=== PATIENT | male | born 1995 | race Caucasian/White ===

== ENCOUNTER 2020-08-20 01:52 | Emergency (ER) | payer SELFPAY ==
[~2020-08-20] VITALS: Ht 157.5 cm; Wt 68.2 kg
[2020-08-20] MEDS ORDERED: morphine INJ 10 MG/ML 1ML (SYR OR VIAL) IVP STA (02:07)
[2020-08-20] MEDS ORDERED: morphine INJ 10 MG/ML 1ML (SYR OR VIAL) IM STA (02:17)
[2020-08-20] MEDS ORDERED: RX-HYDROCODONE/APAP 5/325 MG #4 TAB PK PO PRN (03:00)
[2020-08-20] MEDS ORDERED: oxyCODONE/APAP 5/325MG (PERCOCET 5) TABLET PO ONE (03:00)
[2020-08-20] MEDS ORDERED: ACHD5005 PO (03:02)
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
[2020-08-20 03:14] VITALS: BP 132/89
--- NOTE | 2020-08-20 06:01 | Diagnostic Imaging Report ---
INDICATION: Right leg pain AP and lateral views of the right tibia-fibula show no fracture or dislocation. IMPRESSION: Negative right tibia and fibula Dictated by: Dictated on workstation # [id number]
== END 2020-08-20 03:15 | disposition home or self-care (01) ==
LOC: EDUNIT# 01:52 → ER 01:55
DX: S80.11XA Contusion of right lower leg, initial encounter (principal); F17.210 Nicotine dependence, cigarettes, uncomplicated; W22.8XXA Striking against or struck by other objects, initial encounter; Y92.838 Other recreation area as the place of occurrence of the external cause; Y93.44 Activity, trampolining
CPT/HCPCS: 73590; 99284

== ENCOUNTER 2021-01-21 16:28 | Emergency (ER) | payer SELFPAY ==
[~2021-01-21] VITALS: Ht 157.4 cm; Wt 60.0 kg
[~2021-01-21 16:28] MED LIST: ACHD5005 PO
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
[2021-01-21] MEDS ORDERED: HYDROcodone/APAP 5 MG/325 MG (LORTAB) TAB PO ONE (18:00)
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
[2021-01-21] MEDS ORDERED: KETOROLAC 30 MG/ML VIAL IM ONE (18:15)
[2021-01-21 18:40] VITALS: BP 133/77
== END 2021-01-21 18:40 | disposition home or self-care (01) ==
LOC: EDUNIT# 16:28 → ER 16:30
DX: S70.01XA Contusion of right hip, initial encounter (principal); V86.56XA Driver of dirt bike or motor/cross bike injured in nontraffic accident, initial encounter
CPT/HCPCS: 72131; 72192; 73552; 73562

== ENCOUNTER 2022-03-07 19:23 | Emergency (ER) | payer SELFPAY ==
[2022-03-07] MEDS ORDERED: HYDROcodone/APAP 5 MG/325 MG (LORTAB) TAB PO ONE (20:00)
[2022-03-07] MEDS ORDERED: AUGMENTIN 875 MG TAB (AMOXICILLIN/CLAVULANATE) PO ONE (20:00)
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
[2022-03-07] MEDS ORDERED: fentaNYL INJ 100 MCG/2 ML AMP IVP ONE (20:15)
[2022-03-07] MEDS ORDERED: AMOX1TAB12 PO (20:52)
[2022-03-07] MEDS ORDERED: ACHD5005 PO (20:52)
[2022-03-07] MEDS ORDERED: OXYC1TAB87 PO (20:56)
[2022-03-07] MEDS ORDERED: RX-ONDANSETRON 4 MG ODT (ZOFRAN) PPK #4 PO STA (20:57)
[2022-03-29 20:01] VITALS: BP 121/79
== END 2022-03-07 21:10 | disposition home or self-care (01) ==
LOC: EDUNIT# 19:23 → ER 19:26
DX: T25.222A Burn of second degree of left foot, initial encounter (principal); T25.221A Burn of second degree of right foot, initial encounter; T24.232A Burn of second degree of left lower leg, initial encounter; F17.210 Nicotine dependence, cigarettes, uncomplicated; Z28.310 Unvaccinated for COVID-19; X08.8XXA Exposure to other specified smoke, fire and flames, initial encounter; Y92.090 Kitchen in other non-institutional residence as the place of occurrence of the external cause
CPT/HCPCS: 96374

== ENCOUNTER 2022-10-28 16:16 | Emergency (ER) | payer OTHER ==
[~2022-10-28] VITALS: Ht 157.5 cm; Wt 61.2 kg
[~2022-10-28 16:16] MED LIST changes: +AMOX1TAB12 PO; +OXYC1TAB87 PO
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
[2022-10-28] MEDS ORDERED: TETANUS,DIPTH,PERTUSS P/F (BOOSTRIX) 0.5 ML VIAL IM ONE (16:30)
[2022-10-28] MEDS ORDERED: KETOROLAC 30 MG/ML VIAL IM ONE (16:30)
[2022-10-28 16:58] VITALS: BP 134/108
== END 2022-10-28 16:58 | disposition home or self-care (01) ==
LOC: EDUNIT# 16:20 → ER 16:21
DX: S01.81XA Laceration without foreign body of other part of head, initial encounter (principal); S40.022A Contusion of left upper arm, initial encounter; S40.021A Contusion of right upper arm, initial encounter; S30.0XXA Contusion of lower back and pelvis, initial encounter; Z23 Encounter for immunization; W22.8XXA Striking against or struck by other objects, initial encounter
CPT/HCPCS: 12013; 90715